=== PATIENT | male | born 1995 | race Caucasian/White ===

== ENCOUNTER 2021-09-08 02:34 | Emergency (ER) | payer BC, OTHER ==
[~2021-09-08] VITALS: Ht 182.9 cm; Wt 81.6 kg
[2021-09-08 03:40] VITALS: BP 137/98
[2021-09-08] MEDS ORDERED: LACTATED RINGERS 1,000 ML IV ONE (04:00)
[2021-09-08] MEDS ORDERED: ONDANSETRON 4 MG/2 ML (SDV) Z0FRAN IVP ONE (04:00)
[2021-09-08] MEDS ORDERED: PANTOPRAZOLE 40 MG (PROTONIX) VIAL IV ONE (04:00)
[2021-09-08 04:03] LABS: BILIRUBIN,URINE NEGATIVE (NEGATIVE); CLARITY,URINE CLEAR; COLOR,URINE YELLOW; GLUCOSE, URINE (UA) NEGATIVE (NEGATIVE); KETONES,URINE NEGATIVE (NEGATIVE); LEUKOCYTE ESTERASE ,URINE NEGATIVE (NEGATIVE); NITRITE,URINE NEGATIVE (NEGATIVE); PROTEIN,URINE NEGATIVE (NEGATIVE)
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
[2021-09-08 04:13] LABS: AMPHETAMINE SCREEN, URINE NEGATIVE (NEGATIVE); BARBITURATE SCREEN URINE NEGATIVE (NEGATIVE); BENZODIAZEPINES SCREEN URINE NEGATIVE (NEGATIVE); CANNABINOID SCREEN, URINE NEGATIVE (NEGATIVE); COCAINE SCREEN URINE NEGATIVE (NEGATIVE); METHADONE STAT NEGATIVE (NEGATIVE); METHAMPHETAMINE SCREEN URINE S NEGATIVE (NEGATIVE); OPIATE SCREEN URINE NEGATIVE (NEGATIVE); OXYCODONE STAT NEGATIVE (NEGATIVE); PROPOXYPHENE STAT NEGATIVE (NEGATIVE); TRICYCLIC ANTIDEPRESSANTS SCRE NEGATIVE (NEGATIVE)
[2021-09-08 04:14] LABS: BACTERIA,URINE NEGATIVE /HPF; SQUAMOUS EPITHELIAL CELL,UR 0-2 /HPF
[2021-09-08 04:33] LABS: BASOPHILS % (AUTO) 0 % (0-10); EOSINOPHILS # (AUTO) 0.1 10^3/uL (0.0-0.3); EOSINOPHILS % (AUTO) 1 % (0-10); HEMATOCRIT 48 % (40-54); HEMOGLOBIN 16.1 g/dL (13.3-17.7); LYMPHOCYTES # (AUTO) 1.2 10^3/uL (1.0-4.0); LYMPHOCYTES % (AUTO) 10 % (12-44); MEAN CORPUSCULAR HEMOGLOBIN 32 pg (25-34); MEAN CORPUSCULAR HGB CONC 34 g/dL (32-36); MEAN CORPUSCULAR VOLUME 94 fL (80-99); MEAN PLATELET VOLUME 9.3 fL (9.0-12.2); MONOCYTES # (AUTO) 0.8 10^3/uL (0.0-1.0); MONOCYTES % (AUTO) 7 % (0-12); NEUTROPHILS # (AUTO) 9.8 10^3/uL (1.8-7.8); NEUTROPHILS % (AUTO) 82 % (42-75); PLATELET COUNT 394 10^3/uL (130-400)
[2021-09-08 04:43] LABS: ALBUMIN 4.9 GM/DL (3.2-4.5); CHLORIDE 103 MMOL/L (98-107); POTASSIUM 3.9 MMOL/L (3.6-5.0); SODIUM 140 MMOL/L (135-145)
[2021-09-08 04:44] LABS: AMYLASE 58 U/L (25-125); CALCIUM 9.9 MG/DL (8.5-10.1)
[2021-09-08 04:45] LABS: GLUCOSE 110 MG/DL (70-105); TOTAL PROTEIN 8.1 GM/DL (6.4-8.2)
[2021-09-08 04:46] LABS: CARBON DIOXIDE 24 MMOL/L (21-32)
[2021-09-08 04:47] LABS: BILIRUBIN,TOTAL 0.4 MG/DL (0.1-1.0)
[2021-09-08 04:49] LABS: ALKALINE PHOSPHATASE 60 U/L (40-136); CREATININE SERUM 1.08 MG/DL (0.60-1.30); GFR ESTIMATED 96
[2021-09-08 04:50] LABS: BUN/CREATININE RATIO 13
[2021-09-08 04:52] LABS: ALANINE AMINOTRANSFERASE 26 U/L (0-55); LIPASE 18 U/L (8-78)
[2021-09-08] MEDS ORDERED: HOLD METFORMIN - RECEIVED CONTRAST 20 ML VIAL IV SCH (05:30)
[2021-09-08] MEDS ORDERED: IOHEXOL 350 MG/ML 100 ML (OMNIPAQUE 350) VIAL IV ONE (05:30)
[2021-09-08] MEDS ORDERED: NS 100 ML (IVPB) BAG IV ONE (05:30)
--- NOTE | 2021-09-08 05:45 | Diagnostic Imaging Report ---
CT ABDOMEN/PELVIS W TECHNIQUE: Multiple contiguous axial images were obtained through the abdomen and pelvis after administration of intravenous contrast. All CT scans use one or more of the following dose optimizing techniques: automated exposure control, MA and/or KvP adjustment based on patient size and exam type or iterative reconstruction. INDICATION: Epigastric pain COMPARISON: None available. FINDINGS: Lower chest: The lung bases are clear. No pericardial or pleural effusion. Peritoneum: No free intraperitoneal air or fluid. Liver and biliary system: The liver is normal. Cholelithiasis without gallbladder wall thickening or pericholecystic fluid. No biliary duct dilatation. Spleen and Pancreas: Spleen is normal. The pancreas enhances normally without mass lesion or peripancreatic inflammatory changes. Adrenals: Normal. tract: The kidneys enhance normally without suspicious mass or obstruction. Urinary bladder is distended without wall thickening. No renal or ureteral stones. Prostate is not enlarged. GI tract: Stomach is filled with fluid and there is no wall thickening that would indicate gastritis. No bowel obstruction. No pericolonic inflammatory changes. No inflammatory changes around the normal caliber appendix. The base of the appendix appears thickened, although this is due to redundancy of the appendix. Vasculature and Lymph nodes: Normal caliber aorta. No abdominal or pelvic lymphadenopathy. Musculoskeletal: No concerning osseous lesion. IMPRESSION: 1. Cholelithiasis without CT features of acute cholecystitis. 2. No bowel obstruction, colitis or appendicitis. Dictated by: Dictated on workstation # [id number]
[2021-09-08] MEDS ORDERED: HYOS0.1283 SL (05:50)
[2021-09-08] MEDS ORDERED: PANT40TA2 PO (05:50)
[2021-09-08] MEDS ORDERED: ONDA4TAB11 PO (05:50)
--- NOTE | 2021-09-08 06:46 | Diagnostic Imaging Report ---
ACUTE ABD SERIES INDICATION: Abdominal pain COMPARISON: None available. TECHNIQUE: PA chest with upright and supine views of the abdomen FINDINGS: Lungs are clear. No pleural effusion or pneumothorax. Normal cardiomediastinal silhouette. Nonobstructive bowel gas pattern. No free intraperitoneal air. Normal regional skeleton. IMPRESSION: No acute abnormality by radiography. Please see CT abdomen and pelvis report for more complete details of the abdomen. Dictated by: Dictated on workstation # [id number]
== END 2021-09-08 06:30 | disposition home or self-care (01) ==
LOC: ER 02:38
DX: K80.20 Calculus of gallbladder without cholecystitis without obstruction (principal)
CPT/HCPCS: 74022; 74177; 80053; 80306; 81000; 82150; 83690; 85025; 99284; G0480; 36415; 80320

== ENCOUNTER → 2021-09-19 | Outpatient (CLI) | payer BC ==
[~2021-09-19] MED LIST: HYOS0.1283 SL; ONDA4TAB11 PO; PANT40TA2 PO
== END | disposition home or self-care (01) ==
LOC: PREOP 05:40
PROVIDERS: ATTEND Surgery
DX: Z01.818 Encounter for other preprocedural examination (principal)